=== PATIENT | male | born 1970 | race American Indian/Alaskan Native ===

== ENCOUNTER 2021-01-01 03:42 | Inpatient (IN) | payer BC ==
[2021-01-01 06:21] LABS: Basophils # (Auto) 0.1 K/mm3 (0.0-0.1); Basophils % (Auto) 0.6 % (0.0-1.8); Eosinophils # (Auto) 0.1 K/mm3 (0.0-0.4); Eosinophils % (Auto) 0.6 % (0.0-4.3); Lymphocytes # (Auto) 2.8 K/mm3 (1.2-5.4); Lymphocytes % (Auto) 28.6 % (13.4-35.0); Mean Corpuscular HGB Conc 36 % (32-34); Mean Corpuscular Volume 93 fl (84-94); Monocytes # (Auto) 1.1 K/mm3 (0.0-0.8); Monocytes % (Auto) 10.7 % (0.0-7.3); Platelet Count 290 K/mm3 (140-440); Red Blood Count 4.86 M/mm3 (3.65-5.03); Red Cell Distribution Width 13.4 % (13.2-15.2)
[2021-01-01 06:22] LABS: Hematocrit 45.2 % (35.5-45.6); Hemoglobin 16.1 gm/dl (11.8-15.2)
[2021-01-01 06:46] LABS: Alanine Aminotransferase 20 units/L (7-56); Albumin 3.9 g/dL (3.9-5); BUN/Creatinine Ratio 9; Blood Urea Nitrogen 9 mg/dL (9-20); Calcium 9.1 mg/dL (8.4-10.2); Hemolysis Index 7
[2021-01-01] MEDS ORDERED: ONDANSETRON 4 MG/2 ML INJ IV ONE (10:22)
[2021-01-01] MEDS ORDERED: fentaNYL 100 MCG/2 ML INJ IV ONE (10:22)
[2021-01-01] MEDS ORDERED: SODIUM CHLORIDE 0.9% 1000 ML 1,000 ML IV ONE ×2 (10:23)
--- NOTE | 2021-01-01 10:27 | Emergency Department Report ---
HPI - General Chief Complaint: Abdominal Pain Time Seen by Provider: 01/01/21 10:12 - HPI HPI: Room 2 The patient is a 50-year-old male present with a chief complaint of abdominal pain. The patient states he developed epigastric abdominal pain 2 days ago while eating. Patient states he feels as though food gets stuck in his mid epigastric region. Patient complains of aching burning pain in the midepigastric region that worsens with solid foods. Patient states he has been able to eat soup without increasing pain. Patient admits to nausea but denies vomiting or diarrhea. Patient denies history of fever. The patient states he drinks three 12 ounce beers daily and he last consumed 2 days ago. Patient denies previous episodes of this type of pain. Patient currently gets his pain a score of 7/10 ED Past Medical Hx - Past Medical History Previous Medical History?: No Additional medical history: Sarcoidosis - Surgical History Past Surgical History?: No - Family History Family history: no significant - Social History Smoking Status: Current Every Day Smoker (Cigars) Substance Use Type: Alcohol (2-3 beers daily (12 ounce beers)), Marijuana ED Review of Systems ROS: Stated complaint: LOWER ABDOMINAL PAIN Other details as noted in HPI Constitutional: denies: fever Eyes: denies: eye pain ENT: denies: throat pain Respiratory: no symptoms reported Cardiovascular: denies: chest pain Endocrine: no symptoms reported Gastrointestinal: abdominal pain, nausea. denies: vomiting, diarrhea Genitourinary: denies: dysuria Musculoskeletal: denies: back pain Neurological: denies: headache Physical Exam - Physical Exam Vital Signs: Vital Signs 01/01/21 03:50 Temperature 98.4 F Pulse Rate 93 H Respiratory 18 Rate Blood Pressure 113/61 O2 Sat by Pulse 94 Oximetry Physical Exam: GENERAL: The patient is well-developed well-nourished male lying on stretcher not appearing to be in acute distress. [] HEENT: Normocephalic. Atraumatic. Extraocular motions are intact. Patient has moist mucous membranes. NECK: Supple. Trachea midline CHEST/LUNGS: Clear to auscultation. There is no respiratory distress noted. HEART/CARDIOVASCULAR: Regular. There is no tachycardia. There is no gallop rub or murmur. ABDOMEN: Abdomen is soft, with tenderness to palpation in the right upper quadrant, midepigastric and left upper quadrant. Greatest tenderness in the midepigastric region. There is no guarding. Patient has normal bowel sounds. There is no abdominal distention. SKIN: There is no rash. There is no edema. There is no diaphoresis. NEURO: The patient is awake, alert, and oriented. The patient is cooperative. The patient has no focal neurologic deficits. The patient has normal speech MUSCULOSKELETAL: There is no evidence of acute injury. ED Course Vital Signs 01/01/21 03:50 Temperature 98.4 F Pulse Rate 93 H Respiratory 18 Rate Blood Pressure 113/61 O2 Sat by Pulse 94 Oximetry ED Medical Decision Making - Lab Data Result diagrams: 01/01/21 06:00 01/01/21 06:00 Laboratory Tests 01/01/21 01/01/21 06:00 06:00 WBC 9.9 RBC 4.86 Hgb 16.1 H Hct 45.2 MCV 93 MCH 33 H MCHC 36 H RDW 13.4 Plt Count 290 Lymph % (Auto) 28.6 Baker % (Auto) 10.7 H Eos % (Auto) 0.6 Baso % (Auto) 0.6 Lymph # (Auto) 2.8 Baker # (Auto) 1.1 H Eos # (Auto) 0.1 Baso # (Auto) 0.1 Seg Neutrophils % 59.5 Seg Neutrophils # 5.9 Sodium 137 Potassium 4.2 Chloride 102.0 Carbon Dioxide 25 Anion Gap 14 BUN 9 Creatinine 1.0 Estimated GFR > 60 BUN/Creatinine Ratio 9 Glucose 113 H Calcium 9.1 Total Bilirubin 0.50 AST 13 ALT 20 Alkaline Phosphatase 58 Total Protein 7.4 Albumin 3.9 Albumin/Globulin Ratio 1.1 Lipase 130 H - Radiology Data Radiology results: report reviewed (CT abdomen pelvis), image reviewed (CT abdomen pelvis) [facility] [address] [place] [address] Cat Scan Report Signed Patient: ELBA BRADLEY MR#: [id number] : 1970 Acct:[id number] Age/Sex: 50 / M ADM Date: 01/01/21 Loc: ED Attending Dr: Ordering Physician: THOMAS CARMICHAEL MD Date of Service: 01/01/21 Procedure(s): CT abdomen pelvis w con Accession Number(s): [id number] cc: THOMAS CARMICHAEL MD CT ABDOMEN AND PELVIS WITH CONTRAST INDICATION / CLINICAL INFORMATION: Epigastric pain, elevated lipase. TECHNIQUE: Axial CT images were obtained through the abdomen and pelvis following the administration of intravenous contrast. All CT scans at this location are performed using CT dose reduction for ALARA by means of automated exposure control. COMPARISON: None available. FINDINGS: LOWER CHEST: No significant abnormality. LIVER: No significant abnormality. GALLBLADDER: No significant abnormality. PANCREAS: There is questionable very subtle peripancreatic inflammation along the pancreatic tail. No peripancreatic fluid collection or evidence of necrosis. SPLEEN: No significant abnormality. ADRENALS: No significant abnormality. KIDNEYS / URETERS: No significant abnormality. URINARY BLADDER: No significant abnormality. REPRODUCTIVE ORGANS: No significant abnormality. STOMACH / SMALL BOWEL: No significant abnormality. COLON: No significant abnormality. APPENDIX: No significant abnormality. PERITONEUM: No free fluid. No free air. No fluid collection. LYMPH NODES: No significant adenopathy. AORTA / ARTERIES: No significant abnormality. IVC / VEINS: No significant abnormality. SKELETAL SYSTEM: No significant abnormality. ADDITIONAL FINDINGS: None. IMPRESSION: 1. Questionable subtle peripancreatic inflammation along the pancreatic tail. No peripancreatic fluid collection or evidence of necrosis. Signer Name: Jose Sevilla MD Signed: 01/01/2021 11:26 AM Workstation Name: [id number] Transcribed By: SS Dictated By: JOSE SEVILLA Electronically Authenticated By: JOSE SEVILLA Signed Date/Time: 01/01/21 112 DD/ 1123 TD/TT: Print Cancel - Differential Diagnosis Pancreatitis, peptic ulcer disease, gastritis Critical care attestation.: If time is entered above; I have spent that time in minutes in the direct care of this critically ill patient, excluding procedure time. ED Disposition Clinical Impression: Acute pancreatitis, Acute abdominal pain Disposition: OP ADMIT IP TO THIS HOSP Is pt being admited?: Yes Does the pt Need Aspirin: No Condition: Fair Referrals: LUCAS HARE MD [Primary Care Provider] - 3-5 Days Time of Disposition: 11:38 (Hospitalist paged Dr Rodriguez))
--- NOTE | 2021-01-01 11:31 | Cat Scan Report ---
CT ABDOMEN AND PELVIS WITH CONTRAST INDICATION / CLINICAL INFORMATION: Epigastric pain, elevated lipase. TECHNIQUE: Axial CT images were obtained through the abdomen and pelvis following the administration of intraven ous contrast. All CT scans at this location are performed using CT dose reduction for ALARA by means of automated exposure control. COMPARISON: None available. FINDINGS: LOWER CHEST: No significant abnormality. LIVER: No significant abnormality. GALLBLADDER: No significant abnormality. PANCREAS: There is questionable very subtle peripancreatic inflammation along the pancreatic tail. No peripancreatic fluid collection or evidence of necrosis. SPLEEN: No significant abnormality. ADRENALS: No significant abnormality. KIDNEYS / URETERS: No significant abnormality. URINARY BLADDER: No significant abnormality. REPRODUCTIVE ORGANS: No significant abnormality. STOMACH / SMALL BOWEL: No significant abnormality. COLON: No significant abnormality. APPENDIX: No significant abnormality. PERITONEUM: No free fluid. No free air. No fluid collection. LYMPH NODES: No significant adenopathy. AORTA / ARTERIES: No significant abnormality. IVC / VEINS: No significant abnormality. SKELETAL SYSTEM: No significant abnormality. ADDITIONAL FINDINGS: None. IMPRESSION: 1. Questionable subtle peripancreatic inflammation along the pancreatic tail. No peripancreatic fluid collection or evidence of necrosis. Signer Name: Antony Sevilla MD Signed: 01/01/2021 11:26 AM Workstation Name: [id number]
[2021-01-01] MEDS ORDERED: ONDANSETRON 4 MG/2 ML INJ IV PRN (13:58)
[2021-01-01] MEDS ORDERED: ACETAMINOPHEN 325 MG TAB PO PRN (13:58)
[2021-01-01] MEDS ORDERED: SODIUM CHLORIDE 0.9% 1000 ML 1,000 ML IV SCH (14:00)
--- NOTE | 2021-01-01 14:03 | History and Physical Report ---
History of Present Illness Chief complaint: My stomach hurts History of present illness: 50 YO Male with ETOH Dependence, Sarcoidosis, Nicotine Dependence presents to ED for evaluation. Patient reports "my stomach hurts". Patient states that he has experienced abdominal pain over the past 2 days with persistent symptoms over the same timeframe. Patient states that pain is 7/10, constant, midepigastric, burning in nature, worsened with ingestion of food stuffs. Patient acknowledges nausea, inability to tolerate oral intake,. Patient acknowledges daily alcohol ingestion of up to a sixpack of beer. Patient reports that his last ingestion of alcohol was approximately 38 hours ago. Patient transported to [facility] for further care and evaluation of the aforementioned symptoms. The patient was seen and evaluated in the emergency department. All lab and imaging studies reviewed. Patient underwent CT scan of the abdomen and pelvis and was found to have evidence of acute pancreatitis. Patient also found to have alcohol dependence. Patient placed in observation status and admitted to medical floor and treated with bowel rest and IV fluid resuscitation therapy, as well as CIWA protocol. Patient denies fever, chills, chest pain, palpitation, productive cough, skin rash, recent ill contacts, ingestion of food/water from new or different sources, or known exposure to COVID-19. No prior admission for re view. No medication listed at time of admission for reconciliation. Behavior change counseling conducted in ED. Past History Past Medical History: other (See HPI) Past Surgical History: No surgical history Social history: , lives with family, smoking, alcohol abuse Family history: diabetes, hypertension Medications and Allergies Allergies Allergy/AdvReac Type Severity Reaction Status Date / Time No Known Allergies Allergy Unverified 01/01/21 10:54 Active Meds: Active Medications Acetaminophen (Acetaminophen 325 Mg Tab) 650 mg PO Q4H PRN PRN Reason: Pain MILD(1-3)/Fever >100.5/CROWLEY Sodium Chloride (Nacl 0.9% 1000 Ml) 1,000 mls @ 125 mls/hr IV ONCE ONE Stop: 01/01/21 18:22 Sodium Chloride (Nacl 0.9% 1000 Ml) 1,000 mls @ 150 mls/hr IV DIRECT WEI Ondansetron HCl (Ondansetron 4 Mg/2 Ml Inj) 4 mg IV Q8H PRN PRN Reason: Nausea And Vomiting Sodium Chloride (Sodium Chloride 0.9% 10 Ml Flush Syringe) 10 ml IV BID WEI Sodium Chloride (Sodium Chloride 0.9% 10 Ml Flush Syringe) 10 ml IV PRN PRN PRN Reason: LINE FLUSH Review of Systems Constitutional: no weight loss, no weight gain, no fever, no chills Ears, nose, mouth and throat: no ear pain, no ear discharge, no decreased hearing, no nose pain Cardiovascular: no chest pain, no orthopnea, no rapid/irregular heart beat, no syncope, no lightheadedness Respiratory: no cough, no cough with sputum, no excessive sputum, no hemoptysis, no shortness of breath Gastrointestinal: abdominal pain, nausea, no vomiting, no diarrhea, no constipation, no hematemesis, no coffee ground emesis, no BRBPR, no melena, no hematochezia, no excessive gas, no jaundice Genitourinary Male: no hematuria, no flank pain, no discharge, no urinary frequency, no urinary hesitancy Rectal: no pain, no incontinence, no bleeding Musculoskeletal: no neck stiffness, no neck pain, no shooting arm pain, no low back pain, no shooting leg pain, no redness of joints Integumentary: no rash, no pruritis, no sores, no wounds, no jaundice Neurological: no head injury, no transient paralysis, no weakness, no parathesias, no seizures, no tremors, no ataxia Psychiatric: no anxiety, no change in sleep habits, no sleep disturbances, no insomnia, no hypersomnia, no change in appetite, no suicidal ideation, no disorientation Endocrine: no cold intolerance, no polyphagia, no excessive thirst, no excessive sweating Hematologic/Lymphatic: no easy bruising, no easy bleeding, no lymphadenopathy, no lymphedema Allergic/Immunologic: no allergic rhinitis, no persistent infections, no anaphylaxis Exam - Constitutional Vitals: Temp Pulse Resp BP Pulse Ox 98.2 F 75 15 133/69 97 01/01/21 10:57 01/01/21 10:57 01/01/21 10:57 01/01/21 10:57 01/01/21 10:57 General appearance: Present: mild distress, obese - EENT Eyes: Present: PERRL ENT: hearing intact, clear oral mucosa - Neck Neck: Present: supple, normal ROM - Respiratory Respiratory effort: normal Respiratory: bilateral: CTA - Cardiovascular Heart Sounds: Present: S1 & S2. Absent: rub, click - Extremities Extremities: pulses symmetrical, No edema Peripheral Pulses: within normal limits - Abdominal General gastrointestinal: Present: soft, tender, non-distended, normal bowel sounds, other (Negative Griffiths Flower sign negative Toppenish sign, negative Tejada sign) Localized gastrointestinal: tender: diffuse Male genitourinary: Present: normal - Integumentary Integumentary: Present: clear, warm, dry - Musculoskeletal Musculoskeletal: gait normal, strength equal bilaterally - Psychiatric Psychiatric: appropriate mood/affect, intact judgment & insight - Neurologic Neurologic: CNII-XII intact, moves all extremities Results - Labs CBC & Chem 7: 01/01/21 06:00 01/01/21 06:00 Labs: Abnormal lab results 01/01/21 01/01/21 Range/Units 06:00 06:00 Hgb 16.1 H (11.8-15.2) gm/dl MCH 33 H (28-32) pg MCHC 36 H (32-34) % Mineral % (Auto) 10.7 H (0.0-7.3) % Mineral # (Auto) 1.1 H (0.0-0.8) K/mm3 Glucose 113 H (75-100) mg/dL Lipase 130 H (13-60) units/L Assessment and Plan - Patient Problems (1) Acute pancreatitis Current Visit: Yes Status: Acute Qualifiers: Pancreatitis type: alcohol induced Plan to address problem: Bowel rest, IV fluid resuscitation therapy, pain control, CT scan abdomen and pelvis, lipase level, repeat lipase in a.m. (2) Obesity hypoventilation syndrome Current Visit: Yes Status: Acute (3) Nicotine dependence Current Visit: Yes Status: Acute Qualifiers: Nicotine product type: cigarettes Substance use status: in remission Qualified Code(s): F17.211 - Nicotine dependence, cigarettes, in remission Plan to address problem: Smoking cessation counseling, behavior change counseling, supportive care, +15 minutes. (4) Alcohol dependence Current Visit: Yes Status: Acute Qualifiers: Substance use status: uncomplicated Qualified Code(s): F10.20 - Alcohol dependence, uncomplicated Plan to address problem: CIWA protocol, thiamine, folic acid, multivitamin, IV fluid resuscitation therapy, alcohol cessation counseling, behavior change counseling, outpatient alcohol dependence counseling. Recommend follow-up with Alcoholics Anonymous as outpatient. (5) Acute abdominal pain Current Visit: Yes Status: Acute Plan to address problem: Supportive care, CT scan abdomen and pelvis. Pain control. (6) DVT prophylaxis Current Visit: Yes Status: Acute Plan to address problem: SCD to bilateral lower extremities while in bed, patient is ambulatory
[2021-01-01] MEDS ORDERED: SODIUM CHLORIDE 0.9% 1000 ML 3,000 ML IV ONE (14:04)
[2021-01-01] MEDS ORDERED: LORazepam 2 MG/ML VIAL IV PRN (14:06)
[2021-01-01] MEDS ORDERED: THIAMINE 100 MG, FOLIC ACID 1 MG, MULTIPLE VITAMIN INJ, ADULT 10 ML in SODIUM CHLORIDE ... IV ONE (14:06)
--- NOTE | 2021-01-02 09:27 | Progress Note ---
Assessment and Plan Assessment and plan: Acute pancreatitis. CT scan reveals questionable subtle peripancreatic inflammation along the pancreatic tail. No evidence of necrosis. Acute abdominal pain. Etiology secondary to above. Obesity hypoventilation syndrome Probable obstructive sleep apnea EtOH dependence Nicotine dependence 01/02/2021. Consult GI for further evaluation. Advance diet as tolerated. Continue supportive care with IV fluid hydration and pain control. Follow-up lipase this morning. History Interval history: No new issues overnight. Hospitalist Physical - Constitutional Vitals: Temp Pulse Resp BP Pulse Ox 98.2 F 78 18 137/85 98 01/02/21 05:00 01/02/21 05:00 01/02/21 05:00 01/02/21 05:00 01/02/21 05:00 General appearance: Present: mild distress, obese - EENT Eyes: Present: PERRL, EOM intact ENT: hearing intact, clear oral mucosa, dentition normal - Neck Neck: Present: supple, normal ROM - Respiratory Respiratory effort: normal Respiratory: bilateral: CTA - Cardiovascular Rhythm: regular Heart Sounds: Present: S1 & S2. Absent: gallop, rub - Extremities Extremities: no ischemia, No edema, Full ROM - Abdominal General gastrointestinal: soft, non-tender, non-distended, normal bowel sounds - Integumentary Integumentary: Present: clear, warm, dry - Neurologic Neurologic: CNII-XII intact, moves all extremities Results - Labs CBC & Chem 7: 01/01/21 06:00 01/01/21 06:00 Labs: Laboratory Last Values WBC 9.9 K/mm3 (4.5-11.0) 01/01/21 06:00 RBC 4.86 M/mm3 (3.65-5.03) 01/01/21 06:00 Hgb 16.1 gm/dl (11.8-15.2) H 01/01/21 06:00 Hct 45.2 % (35.5-45.6) 01/01/21 06:00 MCV 93 fl (84-94) 01/01/21 06:00 MCH 33 pg (28-32) H 01/01/21 06:00 MCHC 36 % (32-34) H 01/01/21 06:00 RDW 13.4 % (13.2-15.2) 01/01/21 06:00 Plt Count 290 K/mm3 (140-440) 01/01/21 06:00 Lymph % (Auto) 28.6 % (13.4-35.0) 01/01/21 06:00 Sibley % (Auto) 10.7 % (0.0-7.3) H 01/01/21 06:00 Eos % (Auto) 0.6 % (0.0-4.3) 01/01/21 06:00 Baso % (Auto) 0.6 % (0.0-1.8) 01/01/21 06:00 Lymph # (Auto) 2.8 K/mm3 (1.2-5.4) 01/01/21 06:00 Sibley # (Auto) 1.1 K/mm3 (0.0-0.8) H 01/01/21 06:00 Eos # (Auto) 0.1 K/mm3 (0.0-0.4) 01/01/21 06:00 Baso # (Auto) 0.1 K/mm3 (0.0-0.1) 01/01/21 06:00 Seg Neutrophils % 59.5 % (40.0-70.0) 01/01/21 06:00 Seg Neutrophils # 5.9 K/mm3 (1.8-7.7) 01/01/21 06:00 Sodium 137 mmol/L (137-145) 01/01/21 06:00 Potassium 4.2 mmol/L (3.6-5.0) 01/01/21 06:00 Chloride 102.0 mmol/L (98-107) 01/01/21 06:00 Carbon Dioxide 25 mmol/L (22-30) 01/01/21 06:00 Anion Gap 14 mmol/L 01/01/21 06:00 BUN 9 mg/dL (9-20) 01/01/21 06:00 Creatinine 1.0 mg/dL (0.8-1.3) 01/01/21 06:00 Estimated GFR > 60 ml/min 01/01/21 06:00 BUN/Creatinine Ratio 9 % 01/01/21 06:00 Glucose 113 mg/dL (75-100) H 01/01/21 06:00 Calcium 9.1 mg/dL (8.4-10.2) 01/01/21 06:00 Total Bilirubin 0.50 mg/dL (0.1-1.2) 01/01/21 06:00 AST 13 units/L (5-40) 01/01/21 06:00 ALT 20 units/L (7-56) 01/01/21 06:00 Alkaline Phosphatase 58 units/L (35-129) 01/01/21 06:00 Total Protein 7.4 g/dL (6.3-8.2) 01/01/21 06:00 Albumin 3.9 g/dL (3.9-5) 01/01/21 06:00 Albumin/Globulin Ratio 1.1 % 01/01/21 06:00 Lipase 130 units/L (13-60) H 01/01/21 06:00 Aguilar/IV: Voiding Method Urinal Active Medications - Current Medications Current Medications: Generic Name Dose Route Start Last Admin Trade Name Freq PRN Reason Stop Dose Admin Acetaminophen 650 mg 01/01/21 13:58 Acetaminophen 325 Mg Tab PO Q4H PRN Pain MILD(1-3)/Fever >100.5/CROWLEY Sodium Chloride 1,000 mls @ 150 mls/hr 01/01/21 14:00 01/01/21 22:45 Nacl 0.9% 1000 Ml IV 150 mls/hr DIRECT WEI Administration Lorazepam 2 mg 01/01/21 14:06 Lorazepam 2 Mg/Ml Vial IV Q1HR PRN CIWA-Ar 8-15 Ondansetron HCl 4 mg 01/01/21 13:58 Ondansetron 4 Mg/2 Ml Inj IV Q8H PRN Nausea And Vomiting Sodium Chloride 10 ml 01/01/21 22:00 01/01/21 22:00 Sodium Chloride 0.9% 10 Ml Flush Syringe IV 10 ml BID WEI Administration Sodium Chloride 10 ml 01/01/21 13:58 Sodium Chloride 0.9% 10 Ml Flush Syringe IV PRN PRN LINE FLUSH
--- NOTE | 2021-01-02 13:27 | Gastroenterology Consultation ---
History of Present Illness - Reason for Consult Consult date: 01/02/21 Abdominal pain Requesting physician: KAJAL BOBO - History of Present Illness 50 YO Male with ETOH Dependence, Sarcoidosis admitted for abdominal pain Patient reports abdominal pain epigastric severe associate with nausea and vomiting worse with eating better with nothing, no radiation Patient reports drinking 3-6 beer daily, he reports drinking moonshine and gldais emade wine from friends last week CT demonstrates pancreatitis Patient however reports he started feel better today and feels like he could eat Obtained/updated/reviewed patient's current medications Past History Past Medical History: other (See HPI) Past Surgical History: No surgical history Social history: , lives with family, smoking, alcohol abuse Family history: diabetes, hypertension Medications and Allergies Allergies Allergy/AdvReac Type Severity Reaction Status Date / Time No Known Allergies Allergy Unverified 01/01/21 10:54 Active Meds: Active Medications Acetaminophen (Acetaminophen 325 Mg Tab) 650 mg PO Q4H PRN PRN Reason: Pain MILD(1-3)/Fever >100.5/CROW[place] Sodium Chloride (Nacl 0.9% 1000 Ml) 1,000 mls @ 150 mls/hr IV DIRECT [facility] Last Admin: 01/01/21 22:45 Dose: 150 mls/hr Documented by: Lorazepam (Lorazepam 2 Mg/Ml Vial) 2 mg IV Q1HR PRN PRN Reason: CIWA-Ar 8-15 Ondansetron HCl (Ondansetron 4 Mg/2 Ml Inj) 4 mg IV Q8H PRN PRN Reason: Nausea And Vomiting Sodium Chloride (Sodium Chloride 0.9% 10 Ml Flush Syringe) 10 ml IV BID [facility] Last Admin: 01/02/21 10:27 Dose: Not Given Documented by: Sodium Chloride (Sodium Chloride 0.9% 10 Ml Flush Syringe) 10 ml IV PRN PRN PRN Reason: LINE FLUSH Review of Systems - Review of Systems All systems: negative (10 Systems reviewed and negative except as mentioned above in the history of present illness) Exam - Constitutional Vital Signs: Temp Pulse Resp BP Pulse Ox 98.4 F 80 18 135/81 98 01/02/21 07:19 01/02/21 07:19 01/02/21 07:19 01/02/21 07:19 01/02/21 07:19 General appearance: no acute distress - EENT Eyes: EOM intact ENT: hearing intact - Neck Neck: supple - Respiratory Respiratory effort: normal - Cardiovascular Rhythm: regular - Gastrointestinal General gastrointestinal: Present: soft, non-tender - Integumentary Integumentary: Present: dry - Neurologic Neurological: alert and oriented x3 - Psychiatric Psychiatric: appropriate mood/affect - Labs CBC & Chem 7: 01/01/21 06:00 01/01/21 06:00 Assessment and Plan Patient's symptoms are already starting to improve Clinical findings most consistent with mild acute pancreatitis Given patient's improvement in symptoms we will start patient on a diet If patient tolerates diet well he can be discharged with outpatient follow-up with alcohol cessation education - Patient Problems (1) Epigastric abdominal pain Current Visit: Yes Status: Acute (2) Acute pancreatitis Current Visit: Yes Status: Acute Qualifiers: Pancreatitis type: alcohol induced (3) Alcohol dependence Current Visit: Yes Status: Acute Qualifiers: Substance use status: uncomplicated Qualified Code(s): F10.20 - Alcohol dependence, uncomplicated
[2021-01-02 16:58] VITALS: BP 133/80
[2021-01-02 18:05] LABS: Chol/HDL Ratio 4.22 %
== END 2021-01-02 19:55 | disposition home or self-care (01) | DRG 439 ==
LOC: ED 03:42 → 3B-SURG 13:58 → OBSVTOIN 01-02 10:20
PROVIDERS: ADMIT Internal Medicine; ATTEND Hospitalist
DX: K85.90 Acute pancreatitis without necrosis or infection, unspecified (principal); E66.2 Morbid (severe) obesity with alveolar hypoventilation; D86.9 Sarcoidosis, unspecified; F12.90 Cannabis use, unspecified, uncomplicated; F17.210 Nicotine dependence, cigarettes, uncomplicated; F10.20 Alcohol dependence, uncomplicated; Z71.6 Tobacco abuse counseling; Z68.38 Body mass index [BMI] 38.0-38.9, adult; Z83.3 Family history of diabetes mellitus; Z82.49 Family history of ischemic heart disease and other diseases of the circulatory system
CPT/HCPCS: 36415; 74177; 80053; 80061; 83690; 85025; 96374; 96375; 99406; G0378; J2405; J3010; J3411; J7030; Q9967